=== PATIENT | male | born 1985 | race Hispanic/Latino ===

== ENCOUNTER 2020-09-03 09:51 | Inpatient (IN) | payer OTHER ==
[2020-09-03] VITALS (21 sets, daily range): BP systolic 98–150; BP diastolic 49–84
[~2020-09-03] VITALS: Ht 165.1 cm; Wt 91.3 kg
[2020-09-03] MEDS ORDERED: SODIUM CHLORIDE 0.9% 100 ML IV ONE (09:53)
[2020-09-03 10:03] LABS: BASOPHILS % (AUTO) 0.3 % (0.0-5.0); EOSINOPHILS % (AUTO) 0.9 % (0.0-8.0); HEMATOCRIT 44.5 % (36-48); LYMPHOCYTES % (AUTO) 39.2 % (21.0-51.0); MEAN CORPUSCULAR HEMOGLOBIN 30.4 pg (27.0-33.0); MEAN CORPUSCULAR HGB CONC 34.8 g/dL (32.0-36.0); MEAN CORPUSCULAR VOLUME 87.3 fL (79-99); MONOCYTES % (AUTO) 6.6 % (3.0-13.0); NEUTROPHILS % (AUTO) 52.5 % (40.0-77.0); PLATELET COUNT (AUTO) 229 K/uL (130-400); RED CELL DISTRIBUTION WIDTH 12.3 % (11.0-15.5); WHITE BLOOD COUNT (AUTO) 7.9 K/uL (4.8-10.8)
[2020-09-03] MEDS ORDERED: KETOROLAC TROMETHAMINE 30MG/ML ONE (10:15)
[2020-09-03 10:30] LABS: ALBUMIN 4.4 g/dL (3.5-5.0); BILIRUBIN,TOTAL 1.2 mg/dL (0.2-1.0); CREATININE 0.8 mg/dL (0.5-1.5); POTASSIUM 3.7 mmol/L (3.5-5.1); TOTAL PROTEIN, SERUM 8.1 g/dL (6.0-8.3)
[2020-09-03 10:36] LABS: INR 1.09 (0.85-1.15); PROTHROMBIN TIME 11.8 SEC (9.6-11.6)
[2020-09-03 10:38] LABS: PARTIAL THROMBOPLASTIN TIME 24.8 SEC (26.3-35.5)
[2020-09-03] MEDS ORDERED: ONDANSETRON HCL 4 MG/2 ML VIAL ONE ×2 (10:41→16:57)
[2020-09-03] MEDS ORDERED: MORPHINE SULFATE 4 MG/1ML SYG ONE (10:42)
[2020-09-03] MEDS ORDERED: MORPHINE SULFATE 2 MG/ML 1ML SYG ONE ×2 (12:35→14:26)
[2020-09-03] MEDS ORDERED: ONDANSETRON HCL 4 MG/2 ML VIAL IVP PRN (14:00)
[2020-09-03] MEDS ORDERED: MORPHINE SULFATE 2 MG/ML 1ML SYG IVP PRN ×2 (14:00→14:15)
[2020-09-03] MEDS: CEFAZOLIN SODIUM 1 GM VIAL IVP SCH ×2 (14:00→21:32)
[2020-09-03] MEDS ORDERED: CEFAZOLIN SODIUM 1 GM VIAL ONE ×2 (14:40→16:25)
[2020-09-03] MEDS ORDERED: MIDAZOLAM HCL 1 MG/ML 2ML VIAL ONE (15:43)
[2020-09-03] MEDS ORDERED: PROPOFOL 10 MG/ML 20ML VIAL IV ONE (15:43)
[2020-09-03] MEDS ORDERED: ROPIVACAINE 0.5% 5MG/ML 30ML IJ ONE (15:45)
[2020-09-03] MEDS ORDERED: DEXAMETHASONE SOD PHOSPHATE 4 MG/ML 1ML VIAL ONE (15:46)
[2020-09-03] MEDS ORDERED: FENTANYL CITRATE PF 50 MCG/1 ML 2ML VIAL ONE (16:09)
[2020-09-04] VITALS: BP 109/62
[2020-09-04 04:00] VITALS: BP 116/74
[2020-09-04] MEDS: CEFAZOLIN SODIUM 1 GM VIAL IVP SCH ×2 (05:08→14:40)
[2020-09-04 10:05] VITALS: BP 113/68
[2020-09-04] MEDS: ACETAMINOPHEN-CODEINE 300/30MG TAB PO PRN ×2 (11:07→18:11)
[2020-09-04 14:03] VITALS: BP 114/67
[2020-09-04 17:55] VITALS: BP 115/64
== END 2020-09-04 18:45 | disposition home or self-care (01) | DRG 581 ==
LOC: EDH 09:51 → EDSEX 09:51 → EDHIP 09:52 → 3BH 19:10
PROVIDERS: ADMIT Surgery Plastic and Reconstructive Surgery; ATTEND Surgery Plastic and Reconstructive Surgery
PROC: 0X6N0Z0 Detachment at Right Index Finger, Complete, Open Approach (ICD-10-PCS; principal; 2020-09-03 15:54)
PROC: 0LQ70ZZ Repair Right Hand Tendon, Open Approach (ICD-10-PCS; 2020-09-03 15:54)
DX: S61.210A Laceration without foreign body of right index finger without damage to nail, initial encounter (principal); Z20.822 Contact with and (suspected) exposure to COVID-19; W31.2XXA Contact with powered woodworking and forming machines, initial encounter; Y93.89 Activity, other specified; Y92.89 Other specified places as the place of occurrence of the external cause; Y99.8 Other external cause status
CPT/HCPCS: 36415; 73090; 73130; 80053; 85025; 85610; 85730; 86850; 86900; 86901; 87426; 99291; A4565; A4606; G0378; J0690; J1100; J1885; J2250; J2270; J2405; J2704; J2795; J3010; U0003